=== PATIENT | female | born 1975 ===

== ENCOUNTER 2017-08-16 13:04 | Emergency (ER) | payer OTHER ==
[2017-08-16 13:24] VITALS: BP 124/85; PULSE 76; RESP 18; TEMP 98.2; O2SAT 99
[2017-08-16 15:05] LABS: BASO % 0.3 % (0.0-2.0); EOS % 0.1 % (0.0-4.0); HEMATOCRIT 33.1 % (34.0-47.0); LYMPH # 0.9 K/uL (1.0-4.3); LYMPH % 11.3 % (20.0-40.0); MEAN CELL VOLUME 72.9 fl (81.0-99.0); MEAN CORPUSCULAR HEMOGLOBIN 22.5 pg (27.0-31.0); MEAN CORPUSCULAR HGB CONC 30.9 g/dL (33.0-37.0); MEAN PLATELET VOLUME 7.2 fl (7.2-11.7); MONO # 0.5 K/uL (0.0-0.8); MONO % 6.2 % (0.0-10.0); NEUT # 6.2 K/uL (1.8-7.0); NEUT % 82.1 % (50.0-75.0); NRBC % 0.1 % (0.0-0.0); WHITE BLOOD COUNT 7.6 K/uL (4.8-10.8)
[2017-08-16 15:13] LABS: ALKALINE PHOSPHATASE 61 U/L (38-126); ALT/SGPT 33 U/L (9-52); AST/SGOT 28 U/L (14-36); BILIRUBIN,TOTAL 0.4 mg/dl (0.2-1.3); BLOOD UREA NITROGEN 10 mg/dl (7-17); CALCIUM 8.9 mg/dL (8.4-10.2); CARBON DIOXIDE 23 mmol/L (22-30); CHLORIDE 107 mmol/L (98-107); GFR AFRICAN-AMERICAN > 60; GLUCOSE,RANDOM 87 mg/dL (65-105); POTASSIUM 3.9 MMOL/L (3.6-5.0); SODIUM 141 mmol/l (132-148); TOTAL PROTEIN 8.2 G/DL (6.3-8.2)
--- NOTE | 2017-08-16 15:18 | ED PDOC ---
Syncope/Near Syncope/Dizziness <Kavon Keating - Last Filed: 08/16/17 17:08> Chief Complaint (Provider): Dizziness History Per: Patient History/Exam Limitations: no limitations Onset/Duration Of Symptoms: Hrs Current Symptoms Are (Timing): Still Present Current Symptoms: Dizziness, epigastric burning Activity At Onset Of Symptoms: Sitting Associated Symptoms Preceding Syncopal Episode: No Predromal Symptoms (Sudden Onset), Vertigo Worse With Change In Head Position Seizure Or Post-ictal Symptoms: None Possible Causative Factor(s): New Medications (Plan B last night) Fall Associated With With Symptoms: No Severity: Moderate Additional Complaint(s): 42 y/o F with Hx of anxiety/depression, anemia and GERD presents to ED c/o new onset dizziness this morning while at work. Symptoms started suddenly after breakfast, at the beginning things were spinning around her but right now not that much any more. Denies vomiting or nausea. Afebrile. Denies palpitations, SOB, CP, paresthesias or feeling anxious. Admits taking Plan B last night after casual sexual intercourse. Has severe difficulty to switching positions because she becomes dizzy. Also c/o epigastric burning sensation <Jack Javed - Last Filed: 08/16/17 18:29> Time Seen by Provider: 08/16/17 13:39 Chief Complaint (Nursing): Dizziness/Lightheaded Past Medical History Vital Signs: Last Vital Signs Temp 98.2 F 08/16/17 13:20 Pulse 76 08/16/17 13:20 Resp 18 08/16/17 13:20 BP 124/85 08/16/17 13:20 Pulse Ox 99 08/16/17 15:23 <Kavon Keating - Last Filed: 08/16/17 17:08> Reviewed: Vital Signs Vital Signs: Last Vital Signs Temp 98.2 F 08/16/17 13:20 Pulse 76 08/16/17 13:20 Resp 18 08/16/17 13:20 BP 124/85 08/16/17 13:20 Pulse Ox 99 08/16/17 13:20 - Medical History PMH: Anemia, Gastritis - Surgical History Other surgeries: Breast and ovarian cyst - Family History Family History: States: No Known Family Hx - Living Arrangements Living Arrangements: Alone <Jack Javed - Last Filed: 12/05/17 18:29> - Home Medications Home Medications: Ambulatory Orders Medication Instructions Recorded Amoxicillin/Clavulanate [Augmentin 1 tab PO BID #20 tab 08/16/17 875 MG-125 MG] Meclizine [Antivert] 25 mg PO Q6 #20 tab 08/16/17 - Allergies Allergies/Adverse Reactions: Allergies Allergy/AdvReac Type Severity Reaction Status Date / Time No Known Allergies Allergy Verified 08/16/17 13:19 Review of Systems ROS Statement: Except As Marked, All Systems Reviewed And Found Negative Gastrointestinal: Positive for: Abdominal Pain Neurological: Positive for: Dizziness <Jack Javed - Last Filed: 08/16/17 18:29> Physical Exam - Reviewed Nursing Documentation Reviewed: Yes Vital Signs Reviewed: Yes - Physical Exam Appears: Positive for: Non-toxic, Uncomfortable Skin: Positive for: Normal Color, Warm Eye Exam: Positive for: EOMI, PERRL, Nystagmus (horizontal unidirectional) Cardiovascular/Chest: Positive for: Regular Rate, Rhythm. Negative for: Gallop , Murmur Respiratory: Positive for: Normal Breath Sounds. Negative for: Crackles, Rales , Wheezing Gastrointestinal/Abdominal: Positive for: Soft. Negative for: Tenderness, Distended, Rebound Back: Negative for: L CVA Tenderness, R CVA Tenderness Neurologic/Psych: Positive for: Alert, Oriented, Other (Brooklynn-Hallpike test positive). Negative for: Motor/Sensory Deficits <Jack Javed - Last Filed: 08/16/17 18:29> - Laboratory Results Result Diagrams: 08/16/17 14:59 08/16/17 14:59 - ECG ECG: Positive for: Interpreted By Ia ECG Rhythm: Positive for: Normal QRS, Normal ST Segment, Sinus Rhythm. Negative for: ST/T Changes Interpretation Of Abn EKG: twi in 3, no evidnece of acute ischemia <Kavon Keating - Last Filed: 08/16/17 17:08> - Laboratory Results Result Diagrams: 08/16/17 14:59 08/16/17 14:59 - ECG O2 Sat by Pulse Oximetry: 99 - Progress ED Course And Treament: PAtient responded well to Meclizine and CT of the head r/o stroke or acute events. Patient has r/sphenoid sinusitis and was given one dose of PO augmentin here at ED. Labs shows mild anemia and rest unremarkable. test negative. <Jack Javed - Last Filed: 08/16/17 18:29> Medical Decision Making Medical Decision Making: PROCEDURE: CT HEAD WITHOUT CONTRAST. HISTORY: dizzy COMPARISON: None available. TECHNIQUE: Axial computed tomography images were obtained through the head/brain without intravenous contrast. Radiation dose: Total exam DLP = 1029.66 mGy-cm. This CT exam was performed using one or more of the following dose reduction techniques: Automated exposure control, adjustment of the mA and/or kV according to patient size, and/or use of iterative reconstruction technique. FINDINGS: HEMORRHAGE: No intracranial hemorrhage. BRAIN: Normal doshi-white matter differentiation and density are appreciated throughout the cerebrum and cerebellum with the brainstem appearing unremarkable as well. There is no mass effect. There is no suspicious extra-axial fluid collection in the midline brain anatomy appears diffusely unremarkable. VENTRICLES: Unremarkable. No hydrocephalus. CALVARIUM: Unremarkable. PARANASAL SINUSES: Trace right sphenoid sinusitis identified. MASTOID AIR CELLS: Unremarkable as visualized. No inflammatory changes. OTHER FINDINGS: None. IMPRESSION: Unremarkable unenhanced head CT as discussed above. CT or MRI are available for follow-up if clinically warranted. Incidental, limited right sphenoid sinusitis noted. <ZuriKavon - Last Filed: 08/16/17 17:08> Medical Decision Making: Vertigo R/o , stroke and anemia F/U Head CT, CBC, CMP <Jack Javed - Last Filed: 08/16/17 18:29> Disposition <DenamikaelKavon - Last Filed: 08/16/17 17:08> - Patient ED Disposition Is Patient to be Admitted: No - Disposition Disposition: Routine/Home Disposition Time: 18:20 <Jack Javed - Last Filed: 08/16/17 18:29> - Clinical Impression Clinical Impression: Sinusitis, Vertigo - Disposition Referrals: Deion Au MD [Staff Provider] - Condition: GOOD Prescriptions: Amoxicillin/Clavulanate [Augmentin 875 MG-125 MG] 1 tab PO BID #20 tab Meclizine [Antivert] 25 mg PO Q6 #20 tab Instructions: Sinusitis (ED), Vertigo (ED) Forms: [employer] (E[place]ian) Print Language: TURKMEN
[2017-08-16 15:24] LABS: ALB/GLOB RATIO 1.2 (1.0-2.1)
--- NOTE | 2017-08-16 16:10 | CT ---
PROCEDURE: CT HEAD WITHOUT CONTRAST. HISTORY: dizzy COMPARISON: None available. TECHNIQUE: Axial computed tomography images were obtained through the head/brain without intravenous contrast. Radiation dose: Total exam DLP = 1029.66 mGy-cm. This CT exam was performed using one or more of the following dose reduction techniques: Automated exposure control, adjustment of the mA and/or kV according to patient size, and/or use of iterative reconstruction technique. FINDINGS: HEMORRHAGE: No intracranial hemorrhage. BRAIN: Normal doshi-white matter differentiation and density are appreciated throughout the cerebrum and cerebellum with the brainstem appearing unremarkable as well. There is no mass effect. There is no suspicious extra-axial fluid collection in the midline brain anatomy appears diffusely unremarkable. VENTRICLES: Unremarkable. No hydrocephalus. CALVARIUM: Unremarkable. PARANASAL SINUSES: Trace right sphenoid sinusitis identified. MASTOID AIR CELLS: Unremarkable as visualized. No inflammatory changes. OTHER FINDINGS: None. IMPRESSION: Unremarkable unenhanced head CT as discussed above. CT or MRI are available for follow-up if clinically warranted. Incidental, limited right sphenoid sinusitis noted.
[2017-08-16] MEDS ORDERED: Amoxicillin-Clav 875-125 mg Tab PO STA (17:09)
[2017-08-16] MEDS ORDERED: Amoxicillin-Clav 875-125 mg Tab PO ONE (17:30)
--- NOTE | 2017-08-17 12:13 | CARD ---
APPROVED REPORT EKG Measurement Heart [id number] <Conclusion> Normal sinus rhythm Low voltage QRS Nonspecific T wave abnormality Abnormal ECG
== END 2017-08-16 18:57 | disposition home or self-care (01) ==
LOC: H.ER 13:04
DX: J32.3 Chronic sphenoidal sinusitis (principal); R42 Dizziness and giddiness; J01.90 Acute sinusitis, unspecified